=== PATIENT | male | born 1995 | race Two or more races ===

== ENCOUNTER 2020-01-11 20:47 | Emergency (ER) | payer MEDICAID, OTHER ==
[~2020-01-11] VITALS: Ht 167.6 cm; Wt 67.1 kg
[~2020-01-11 20:47] MED LIST: LIDOcaine 1% W/epiNEPHrine 1:100,000 20ml vial ONE
[2020-01-11] MEDS ORDERED: bacitracin 15gm ointment TP ONE (21:25)
[2020-01-11] MEDS ORDERED: TETanus/Pertussis (Acell)/Diphther VAC/PF (Tdap-Adult) 0.5ml syringe IMVAC ONE (21:25)
[2020-01-11 21:56] VITALS: BP 116/64
== END 2020-01-11 22:00 | disposition home or self-care (01) ==
LOC: ER 20:47
DX: S61.412A Laceration without foreign body of left hand, initial encounter (principal); W45.8XXA Other foreign body or object entering through skin, initial encounter; Y93.89 Activity, other specified; Y92.89 Other specified places as the place of occurrence of the external cause; Y99.8 Other external cause status
CPT/HCPCS: 12001; 90471; 90715; 99283